=== PATIENT | male | born 1980 | race Caucasian/White ===

== ENCOUNTER 2021-10-22 11:18 | Emergency (ER) | payer OTHER ==
[~2021-10-22] VITALS: Ht 175.3 cm; Wt 97.2 kg
--- NOTE | 2021-10-22 11:46 | PHYS DOC ---
General Adult HPI: HPI: Patient is a 41-year-old male who presents to the emergency department for sinus congestion and green nasal drainage, nonproductive cough that started 1 week ago. Patient denies any fevers, shortness of breath, sick exposures. He reports that he had a negative at-home COVID test yesterday. Review of Systems: Review of Systems: Constitutional: See HPI HENT: See HPI Respiratory:See HPI Physical Exam: PE: Constitutional: Well developed, well nourished, no acute distress, non-toxic appearance. [] HENT: Normocephalic, atraumatic, bilateral external ears normal,TM pearly camacho without erythema, oropharynx moist, no oral exudates, pharyngeal erythema, cobbl estoning, post nasal drainage noted, pain reported with palpation of maxillary sinuses, nose normal. [] Eyes: PERRL, EOMI, conjunctiva normal, no discharge. [] Neck: Normal range of motion, no tenderness, supple,no palpable cervical lymphadenopathy, no stridor. [] Cardiovascular:Heart rate regular rhythm, no murmur [] Lungs & Thorax: Bilateral breath sounds clear to auscultation [] Abdomen: Bowel sounds normal, soft, no tenderness, no masses, no pulsatile masses. [] Skin: Warm, dry, no erythema, no rash. [] Back: No tenderness, normal ROM Extremities: No tenderness, no cyanosis, no clubbing, ROM intact, no edema. [] Neurologic: Alert and oriented X 3, normal motor function, normal sensory fu nction, no focal deficits noted. [] Psychologic: Affect normal, judgement normal, mood normal. [] Current Patient Data: Labs: Laboratory Tests Test 10/22/21 12:15 Influenza Type A (Rapid) Negative Influenza Type B (Rapid) Negative SARS-CoV-2 Antigen (Rapid) Negative EKG: EKG: [] Radiology/Procedures: Radiology/Procedures: [] Heart Score: C/O Chest Pain: N/A Risk Factors: Risk Factors: DM, Current or recent (<one month) smoker, HTN, HLP, family history of CAD, obesity. Risk Scores: Score 0 - 3: 2.5% MACE over next 6 weeks - Discharge Home Score 4 - 6: 20.3% MACE over next 6 weeks - Admit for Clinical Observation Score 7 - 10: 72.7% MACE over next 6 weeks - Early Invasive Strategies Course & Med Decision Making: Course & Med Decision Making Pertinent Labs and Imaging studies reviewed. (See chart for details) Patient presents to the ER for sinus congestion/drainage and a non productive cough x1 week. Patient has pain with palpation of maxillary sinuses. Patient will be tested for influenza and covid. Those results were negative. Patient to be treated for sinusitis with steroid and abx. I discussed with patient all findings and diagnostic testing as well as the need to follow-up with PCP for further evaluation and treatment or return to the ER if any new or worsening symptoms. Strict return precautions were also discussed at length. Patient voiced understanding and agreement with the plan. Patient is hemodynamically stable at the time of disposition. Dragon Disclaimer: [employer] Disclaimer: This electronic medical record was generated, in whole or in part, using a voice recognition dictation system. Departure Departure: Impression: Primary Impression: Sinusitis Qualified Codes: J01.00 - Acute maxillary sinusitis, unspecified Disposition: HOME / SELF CARE / HOMELESS Condition: GOOD Referrals: HALEY TORRES DO, [facility] (PCP) Patient Instructions: Sinusitis Additional Instructions: You were seen in the emergency department today for sinus pressure, nasal congestion and drainage. Your COVID and influenza testing was negative. Please increase your fluids as this will thin your secretions. Take Tylenol and ibuprofen at home for pain. Mucinex [id number] and use Flonase for congestion. You are being treated for sinusitis with an antibiotic. Please start and finish the antibiotic completely. You are also being discharged home with a steroid that will reduce the inflammation. Follow-up with your primary care provider within 7 days. Return to the emergency department if you develop shortness of breath, chest pain, high fevers refractory to treatment, tractable nausea or vomiting. Scripts Amoxicillin/Potassium Clav (AUGMENTIN 875-125 TABLET) 1 Each Tablet 1 TAB PO BID for sinusitis for 10 Days, #20 TAB 0 Refills Prov: ED BOND FORESTRY TECHNICIAN 10/22/21 Methylprednisolone (MEDROL) 4 Mg Tab.ds.pk 1 PKG PO UD for inflammation, #1 PKG 0 Refills Prov: ED BOND FORESTRY TECHNICIAN 10/22/21 ED BOND APRN October 22, 2021 11:46
[2021-10-22 13:27] LABS: INFLUENZA A PATIENT NEGATIVE (NEGATIVE); INFLUENZA B PATIENT NEGATIVE (NEGATIVE)
[2021-10-22 13:30] VITALS: BP 147/77
[2021-10-22] MEDS ORDERED: METH4TAB2 PO (13:32)
[2021-10-22] MEDS ORDERED: AMOX1TAB61 PO (13:32)
== END 2021-10-22 13:50 | disposition home or self-care (01) ==
LOC: ER 11:18
DX: J01.00 Acute maxillary sinusitis, unspecified (principal); Z20.822 Contact with and (suspected) exposure to COVID-19
CPT/HCPCS: 87428; 99283